=== PATIENT | male | born 1950 | race Caucasian/White ===

== ENCOUNTER 2017-02-12 12:09 | Emergency (ER) | payer MEDICARE ==
[2017-02-12 12:13] VITALS: BP 162/82; PULSE 70; RESP 22; TEMP 98.4; O2SAT 95
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
[2017-02-12] MEDS ORDERED: Lidocaine 5% Patch TD STA (13:05)
[2017-02-12] MEDS ORDERED: Lidocaine 5% Patch TD ONE (13:47)
--- NOTE | 2017-02-12 15:35 | RAD ---
PROCEDURE: Radiographs of the Lumbar Spine. HISTORY: Back pain COMPARISON: No prior. FINDINGS: BONES: There is normal alignment of the lumbar vertebral bodies. Lumbar lordosis is maintained. Vertebral bodies are normal in height. There is no acute fracture, spondylolysis or spondylolisthesis. DISC SPACES: There is mild multilevel degenerative disc disease with anterior osteophytes, mild reduced disc heights and multilevel facet arthropathy, worse at L4-5 and L5-S1. OTHER FINDINGS: There are no pathologic soft tissue calcifications. Both sacroiliac joints are normal. IMPRESSION: Mild degenerative disc disease at L4-5 and L5-S1. No acute fracture.
== END 2017-02-12 15:45 | disposition home or self-care (01) ==
LOC: H.ER 12:09
DX: M54.9 Dorsalgia, unspecified (principal); F32.9 Major depressive disorder, single episode, unspecified; F41.9 Anxiety disorder, unspecified; G20 Parkinson's disease; I10 Essential (primary) hypertension; M51.36 Other intervertebral disc degeneration, lumbar region; M51.37 Other intervertebral disc degeneration, lumbosacral region
CPT/HCPCS: 72100; 96372; 99282; J1885

== ENCOUNTER 2017-08-16 00:51 | Emergency (ER) | payer MEDICARE, OTHER ==
[2017-08-16 01:04] VITALS: PULSE 96; RESP 18; TEMP 98.5; O2SAT 98
[2017-08-16] MEDS ORDERED: Silver Sulfadiazine 1% Cream (20 gm) TOP STA (01:41)
[2017-08-16] MEDS ORDERED: Silver Sulfadiazine 1% CREAM (50 gm) ONE (01:47)
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
[2017-08-16 02:40] VITALS: BP 137/87
== END 2017-08-16 02:38 | disposition home or self-care (01) ==
LOC: H.ER 00:51
DX: T23.202A Burn of second degree of left hand, unspecified site, initial encounter (principal); T23.201A Burn of second degree of right hand, unspecified site, initial encounter; X11.8XXA Contact with other hot tap-water, initial encounter; F41.9 Anxiety disorder, unspecified; G20 Parkinson's disease; I10 Essential (primary) hypertension; Z86.59 Personal history of other mental and behavioral disorders
CPT/HCPCS: 96372; 99284; J1885

== ENCOUNTER 2018-02-24 15:55 | Emergency (ER) | payer MEDICARE ==
[2018-02-24 16:24] VITALS: BP 144/79; PULSE 76; RESP 19; TEMP 98.9; O2SAT 97
--- NOTE | 2018-02-24 18:06 | ED PDOC ---
Lower Extremity Pain/Injury Time Seen by Provider: 02/24/18 17:16 Chief Complaint (Nursing): Lower Extremity Problem/Injury Chief Complaint (Provider): Lower Extremity Problem/Injury History Per: Patient History/Exam Limitations: no limitations Current Symptoms Are (Timing): Still Present Additional Complaint(s): 67 year old male with a history of htn and Parkinsons presents to the ED with l eft leg pain and muscle cramping in leg, including thigh, calf, and inner leg, but has no constant pain. He reports headaches with dizziness that started after he was diagnosed with Parkinsons. He denies taking medications for leg pain or headache. Patient also has chronic shaking in extremities and a chronic gait problem due to Parkinsons. He denies any new weakness, new numbness, chest pain, fever, leg swelling, recent travel, or recent hospitalizations. PMD: Dr. Hirsch Neurologist: Dr. Cardona Past Medical History Reviewed: Historical Data, Nursing Documentation, Vital Signs Vital Signs: Last Vital Signs Temp 98.9 F 02/24/18 16:23 Pulse 76 02/24/18 16:23 Resp 19 02/24/18 16:23 BP 144/79 02/24/18 16:23 Pulse Ox 97 02/24/18 16:23 - Medical History PMH: Anxiety, Depression, HTN, Parkinson's Disease, Sleep Apnea Denies: Diabetes, Hepatitis, HIV, Seizures, Sexually Transmitted Disease - Surgical History Surgical History: Hernia Repair (b/l inguinal ) - Family History Family History: States: Unknown Family Hx - Immunization History Hx Tetanus Toxoid Vaccination: No Hx Influenza Vaccination: No Hx Pneumococcal Vaccination: No - Home Medications Home Medications: Ambulatory Orders Medication Instructions Recorded Alprazolam [Xanax] mg PO BID 11/10/14 Carbidopa/Levodopa [Sinemet 25-100 tab PO HS 11/10/14 25 mg-100 mg] Pramipexole Dihydrochloride mg PO TID 11/10/14 [Mirapex] Zolpidem Tartrate [Ambien] mg PO HS 11/10/14 Omeprazole [Prilosec] mg PO DAILY 12/20/14 Pill For High Blood Pressure DAILY 12/20/14 Cyclobenzaprine [Cyclobenzaprine 10 mg PO TID PRN #20 tab 02/12/17 HCl] Lidocaine 5% [Lidoderm] 1 ea TD DAILY #30 patch 10/17/17 Nabumetone [Relafen] 500 mg PO BID #20 tab 02/12/17 - Allergies Allergies/Adverse Reactions: Allergies Allergy/AdvReac Type Severity Reaction Status Date / Time No Known Allergies Allergy Verified 11/10/14 08:14 Review of Systems ROS Statement: Except As Marked, All Systems Reviewed And Found Negative Musculoskeletal: Positive for: Other (right knee pain) Physical Exam - Reviewed Nursing Documentation Reviewed: Yes - Physical Exam Appears: Positive for: Non-toxic, No Acute Distress Head Exam: Positive for: ATRAUMATIC, NORMOCEPHALIC Eye Exam: Positive for: Normal appearance, EOMI ENT: Positive for: Normal ENT Inspection Cardiovascular/Chest: Positive for: Regular Rate, Rhythm. Negative for: Murmur Respiratory: Positive for: Normal Breath Sounds. Negative for: Respiratory Distress Gastrointestinal/Abdominal: Positive for: Normal Exam, Soft. Negative for: Tenderness Extremity: Positive for: Normal ROM (upper and lower). Negative for: Pedal Edema Neurologic/Psych: Positive for: Alert, billing spec II-XII (grossly intact), Oriented (x3). Negative for: Motor/Sensory Deficits - ECG O2 Sat by Pulse Oximetry: 97 (RA) Pulse Ox Interpretation: Normal Medical Decision Making Medical Decision Making: Time: 1739 Initial Impression: Left leg pain and cramps, recurrent headaches, and dizziness Initial Plan: --BMP --CPK --CBC with differentials --Flexeril 10 mg PO --Toradol 30 mg IM Scribe Attestation: Documented by Eulalia Keys, acting as a scribe for Shadi Barrientos MD Provider Scribe Attestation: All medical record entries made by the Scribe were at my direction and personally dictated by me. I have reviewed the chart and agree that the record accurately reflects my personal performance of the history, physical exam, medical decision making, and the department course for this patient. I have also personally directed, reviewed, and agree with the discharge instructions and disposition. Disposition - Clinical Impression Clinical Impression: Leg pain, left - Patient ED Disposition Is Patient to be Admitted: No - Disposition Disposition: Left W/O Treatment Disposition Time: 18:30 Condition: STABLE
== END 2018-02-24 18:56 | disposition home or self-care (01) ==
LOC: H.ER 15:55
DX: M79.605 Pain in left leg (principal); Z86.59 Personal history of other mental and behavioral disorders; G20 Parkinson's disease; I10 Essential (primary) hypertension; R25.2 Cramp and spasm; R51 Headache; R42 Dizziness and giddiness
CPT/HCPCS: 96372; 99284; J1885